=== PATIENT | male | born 1930 | race Caucasian/White ===

== ENCOUNTER 2019-09-03 18:38 | Inpatient (IN) | payer OTHER ==
[~2019-09-03] VITALS: Ht 162.5 cm; Wt 70.5 kg
[2019-09-03 13:00] VITALS: BP 184/100
[~2019-09-03 18:38] MED LIST: ASPIR-LOW81 MG PO; CO Q-1010 M1 PO; COUMADIN2.5 M1 PO; COZAAR100 MG PO; HYDROCODONE BIT1 T11 PO; LABETALOL100 MG PO; LASIX40 MG PO; LOPURIN300 MG PO; NORVASC5 MG PO; RITE AID BRAND650 MG PO; SIMVASTATIN40 MG PO; WARFARIN SOD5 MG PO
[2019-09-03 18:42] VITALS: BP 171/98
[2019-09-03 19:35] LABS: BASO % 0.2 % (0.0-1.0); EOS # 0.2 10*3/uL (0.0-0.4); EOS % 2.6 % (1.0-4.0); HEMATOCRIT 31.6 % (42.0-52.0); HEMOGLOBIN 10.2 g/dl (14.0-18.0); LYMPH # 1.1 10*3/uL (1.3-4.4); LYMPH % 12.3 % (27.0-41.0); MEAN CELL VOLUME 95.8 fl (80.0-94.0); MEAN CORPUSCULAR HGB 30.9 pg (27.0-31.0); MEAN CORPUSCULAR HGB CONC 32.3 g/dl (33.0-37.0); MEAN PLATELET VOLUME 10.2 fl (9.6-12.3); MONO # 1.4 10*3/uL (0.1-1.0); MONO % 15.2 % (3.0-9.0); NEUT # 6.1 10*3/uL (2.3-7.9); NEUT % 68.9 % (47.0-73.0); PLATELET COUNT AUTOMATED 194 10*3/uL (130-400); RED CELL DISTRI WIDTH 17.2 % (0-14.5); WHITE BLOOD COUNT 8.9 10*3/uL (4.8-10.8)
[2019-09-03 19:45] LABS: ACT PARTIAL THROMBO TIME 38.7 SECONDS (20.0-32.1); INTERNATIONAL NORM RATIO 2.6 (2.0-3.5)
[2019-09-03 19:56] LABS: CREATININE 2.95 mg/dL (0.70-1.30); POTASSIUM 3.7 mmol/L (3.5-5.1); TOTAL PROTEIN 6.4 gm/dL (6.4-8.2)
[2019-09-03 20:01] LABS: TROPONIN I 0.064 ng/ml (<0.045)
--- NOTE | 2019-09-03 22:37 | NUR ---
TROPONING OF 0.064.
--- NOTE | 2019-09-04 01:59 | NUR ---
DR MARYANA WHITE ANSWERING SERVICE HAS BEEN CONTACTED FOR PTS ELEVATED TROPONIN OF 0.075. CALL BACK NUMBER WAS PROVIDED
--- NOTE | 2019-09-04 02:29 | NUR ---
PT UP TO USE URINAL. STATES HE HAS HIP PAIN. DENIES CHEST PAIN
[2019-09-04 02:35] VITALS: BP 171/98
[2019-09-04 06:30] LABS: BASO % 0.3 % (0.0-1.0); EOS # 0.1 10*3/uL (0.0-0.4); EOS % 0.9 % (1.0-4.0); HEMATOCRIT 31.2 % (42.0-52.0); HEMOGLOBIN 10.1 g/dl (14.0-18.0); LYMPH # 1.2 10*3/uL (1.3-4.4); LYMPH % 12.4 % (27.0-41.0); MEAN CELL VOLUME 95.1 fl (80.0-94.0); MEAN CORPUSCULAR HGB 30.8 pg (27.0-31.0); MEAN CORPUSCULAR HGB CONC 32.4 g/dl (33.0-37.0); MEAN PLATELET VOLUME 10.7 fl (9.6-12.3); MONO # 1.4 10*3/uL (0.1-1.0); MONO % 15.1 % (3.0-9.0); NEUT # 6.6 10*3/uL (2.3-7.9); NEUT % 70.4 % (47.0-73.0); PLATELET COUNT AUTOMATED 194 10*3/uL (130-400); RED BLOOD COUNT 3.28 10*6/uL (4.50-5.90); RED CELL DISTRI WIDTH 17.2 % (0-14.5); WHITE BLOOD COUNT 9.4 10*3/uL (4.8-10.8)
[2019-09-04 06:39] LABS: ACT PARTIAL THROMBO TIME 40.2 SECONDS (20.0-32.1); INTERNATIONAL NORM RATIO 2.1 (2.0-3.5)
[2019-09-04 06:40] VITALS: BP 178/90
[2019-09-04 06:45] LABS: ALBUMIN 2.8 gm/dl (3.1-4.5); FREE T4 1.25 ng/dl (0.76-1.46); POTASSIUM 3.1 mmol/L (3.5-5.1)
[2019-09-04 06:54] LABS: CREATININE 2.8 mg/dL (0.70-1.30); PHOSPHOROUS 2.8 mg/dL (2.5-4.9); THYROID STIM HORMONE (HS) 0.415 uIU/ml (0.358-4.75); TOTAL PROTEIN 6.2 gm/dL (6.4-8.2)
[2019-09-04 07:21] LABS: VITAMIN D, 25-HYDROXY 62.5 ng/mL (30-100)
[2019-09-04 08:12] VITALS: BP 183/109
[2019-09-04 11:02] VITALS: BP 164/90
--- NOTE | 2019-09-04 12:33 | NUR ---
PT STATES ATIVAN HAS HELPED TAKE THE EDGE OFF SOME
--- NOTE | 2019-09-04 13:00 | NUR ---
Time: 1300 A 89 year old M admitted to under services of ROCKY VARNER DO, Pt. arrived via wheel chair from ER. Chief complaint: LOWER EXTREMITY EDEMA AND SHORTNESS OF BREATH. TARA NERI
--- NOTE | 2019-09-04 14:52 | NUR ---
PT LIVES AT [facility] AND PLANS TO RETURN WHEN MEDICALLY STABLE. WILL CONTINUE TO FOLLOW.
[2019-09-04] MEDS ORDERED: NEURONTIN300 MG PO (15:11)
[2019-09-04] MEDS ORDERED: LORADAMED10 MG PO (15:14)
[2019-09-04] MEDS ORDERED: MEGESTROL ACETA20 MG PO (15:15)
[2019-09-04] MEDS ORDERED: COMPLETE SENIO1 EACH PO (15:17)
[2019-09-04] MEDS ORDERED: NIFEDIPINE30 MG PO (15:19)
[2019-09-04] MEDS ORDERED: FLOMAX0.4 MG PO (15:22)
[2019-09-04] MEDS ORDERED: VITAMIN D10000 UNIT PO (15:25)
[2019-09-04] MEDS ORDERED: 'CLONIDINE0.1 MG PO (15:33)
[2019-09-04] MEDS ORDERED: ULTRAM50 MG PO (15:35)
[2019-09-04] MEDS ORDERED: TRAZODONE50 MG PO (15:37)
[2019-09-04 16:00] VITALS: BP 186/103
--- NOTE | 2019-09-04 16:28 | NUR ---
MEDICATED WITH CLONODINE PER PRN ORDER FOR BLOOD PRESSURE 186/103. WILL CONTINUE TO MONITOR.
--- NOTE | 2019-09-04 19:32 | NUR ---
PT STATES THAT HE IS FEELING ANDXIOUS ADN THAT HE HAS PAIN IN HIS HIPS AND LEGS RATING IT A 7/10. PRN TYLENOL IS GIVEN FOR THE PAIN. ATIVAN IS ALSO GIVEN AT THIS TIME. CALL LIGHT WITHIN REACH, WILL CONTINUE TO MONITOR
--- NOTE | 2019-09-04 19:35 | NUR ---
IN PT ROOM AT THIS TIME TO DO ASSESSMENT,PT STATES THAT HE IS FEELING ANXIOUS AND HAS PAIN IN HIS HIPS BUT OTHER THAN THAT HAS NO COMPLAINTS. CALL LIGHT IS WITHIN REACH. PT STATES THAT HE IS COMFORTABLE IN HIS CLOTHES AND DOES NOT WANT A GOWN ON.
[2019-09-04 20:00] VITALS: BP 181/100
--- NOTE | 2019-09-04 22:00 | NUR ---
IN PT ROOM A TO ASSESS IF THE PRN MEDICATIONS GIVEN WERE AFFECTIVE AND PT IS SLEEPING AT THIS TIME. WILL CONTINUE TO MONITOR, CALL LIGHT WITHIN REACH
[2019-09-05] VITALS: BP 172/70
--- NOTE | 2019-09-05 01:00 | NUR ---
24 HR chart check completed.
--- NOTE | 2019-09-05 04:00 | NUR ---
Patient sleeping. Respirations relaxed and easy. Siderails up . [place] on. LAURA GREGORIO
[2019-09-05 07:08] LABS: BASO % 0.2 % (0.0-1.0); EOS # 0.1 10*3/uL (0.0-0.4); HEMOGLOBIN 10.3 g/dl (14.0-18.0); LYMPH # 1.4 10*3/uL (1.3-4.4); LYMPH % 16.6 % (27.0-41.0); MEAN CELL VOLUME 93.6 fl (80.0-94.0); MEAN CORPUSCULAR HGB 30.1 pg (27.0-31.0); MEAN CORPUSCULAR HGB CONC 32.2 g/dl (33.0-37.0); MEAN PLATELET VOLUME 10.8 fl (9.6-12.3); MONO # 1.1 10*3/uL (0.1-1.0); NEUT # 5.9 10*3/uL (2.3-7.9); NEUT % 68.6 % (47.0-73.0); PLATELET COUNT AUTOMATED 221 10*3/uL (130-400); RED BLOOD COUNT 3.42 10*6/uL (4.50-5.90); RED CELL DISTRI WIDTH 17.3 % (0-14.5); WHITE BLOOD COUNT 8.6 10*3/uL (4.8-10.8)
[2019-09-05 07:25] LABS: INTERNATIONAL NORM RATIO 1.6 (2.0-3.5)
[2019-09-05 07:33] LABS: ALBUMIN 2.7 gm/dl (3.1-4.5); CREATININE 2.42 mg/dL (0.70-1.30); PHOSPHOROUS 2.7 mg/dL (2.5-4.9); POTASSIUM 3.2 mmol/L (3.5-5.1); TOTAL PROTEIN 6.2 gm/dL (6.4-8.2)
--- NOTE | 2019-09-05 07:45 | NUR ---
Nursing screen received and chart reviewed. Patient admitted for SOB, recently diagnosed with PNA at [place]. If patient has a decline in ADLs, functional transfers, and mobility, please send OT orders. Joyce Cartagena OTR/L
--- NOTE | 2019-09-05 07:57 | NUR ---
PHYSICAL THERAPY Screen recieved pt admitted from [facility] with CHF, per H&P pt c/o BLE swelling w difficulty ambulating. Pt would benefit from PT to increase mobility. Please consult as medically appropriate, thank you Luly Clark PT
[2019-09-05 08:00] VITALS: BP 166/74
--- NOTE | 2019-09-05 10:30 | NUR ---
HEPARIN DRIP INITIATED, BOLUS GIVEN AND STARTED AT 13.1 CC/HR.
[2019-09-05 12:00] VITALS: BP 154/83
--- NOTE | 2019-09-05 13:28 | NUR ---
PT IS FROM [facility] AND STATES HE WILL RETURN WHEN MEDICALLY STABLE AND READY FOR DISCHARGE.
[2019-09-05 16:00] VITALS: BP 132/80
--- NOTE | 2019-09-05 17:00 | NUR ---
HEPARIN GTT STOPPED AT THIS TIME DUE TO PTT RESULT. WILL DECREASE BY THREE UNITS AND RESUME AT 1800 PER POLICY.
[2019-09-05 20:00] VITALS: BP 137/79
--- NOTE | 2019-09-05 21:43 | NUR ---
PT RESTING ON BED WITH EASY RESPIRATIONS. HEPARIN DRIP AT 10 UNITS/7.3 ML/HR. PT TOLERATING WELL. 2+ EDEMA LOWER EXTREMITIES WITH LOWER RALES. PT USING BEDSIDE URINAL. NO PAIN REPORTED. NO DISTRESS NOTED. RN TO CONTINUE TO MONITOR FOR SIGNS OF BLEEDING.
[2019-09-06] VITALS: BP 152/79
[2019-09-06 07:42] LABS: INTERNATIONAL NORM RATIO 1.4 (2.0-3.5)
[2019-09-06 07:43] LABS: CREATININE 2.83 mg/dL (0.70-1.30)
--- NOTE | 2019-09-06 07:48 | NUR ---
Updated clinicals faxed to [facility] living. No PT or OT orders were placed. Patient stating he will return there upon discharge.
[2019-09-06 08:00] VITALS: BP 156/83
--- NOTE | 2019-09-06 08:15 | NUR ---
Contacted [facility] and spoke with Sanaz. Told her I faxed updated clinicals for review and patient should be discharged in 24 to 48 hours. She stated upon discharge his niece can transport later in the afternoon. Patient is ok to return to [facility] when medically stable for discharge.
[2019-09-06 12:00] VITALS: BP 137/77
[2019-09-06 16:00] VITALS: BP 132/69
[2019-09-06 20:00] VITALS: BP 146/82
--- NOTE | 2019-09-06 21:59 | NUR ---
PATIENT C/O SOB, WHEEZY. NO BREATHING TREATMENTS ORDER. NOTIFIED DR. HURTADO. SEE NEW ORDERS.
[2019-09-07] VITALS: BP 150/81
[2019-09-07 05:53] LABS: CREATININE 2.9 mg/dL (0.70-1.30); POTASSIUM 3.5 mmol/L (3.5-5.1)
[2019-09-07 06:23] LABS: ACT PARTIAL THROMBO TIME 46.3 SECONDS (20.0-32.1); INTERNATIONAL NORM RATIO 1.7 (2.0-3.5)
[2019-09-07 08:00] VITALS: BP 149/86
[2019-09-07 12:00] VITALS: BP 140/66; BP 154/87
--- NOTE | 2019-09-07 14:48 | NUR ---
Patient is from [facility]. He is ok to return when medically stable, his niece will transport him later in the afternoon.
[2019-09-07 16:00] VITALS: BP 158/68
[2019-09-07 20:00] VITALS: BP 160/85
--- NOTE | 2019-09-07 21:30 | NUR ---
PATIENT WHEEZY. C/O CHEST TIGHTNESS. NO BREATHING TREATMENTS ORDERED. NOTIFIED DR. LUGO. RAAD ORDERED, Q4 PRN. RESPIRATORY CALLED TO GIVE PATIENT A BREATHING TREATMENT.
--- NOTE | 2019-09-07 22:31 | NUR ---
PATIENT GIVEN TYLENOL FOR C/O GENERALIZED PAIN. WILL CHECK EFFECTIVENESS. PATIENT STATES BREATHING TREATMENT HELPED.
[2019-09-08] VITALS: BP 165/85
[2019-09-08 06:14] LABS: BASO % 0.6 % (0.0-1.0); EOS # 0.2 10*3/uL (0.0-0.4); EOS % 3.2 % (1.0-4.0); HEMATOCRIT 31.8 % (42.0-52.0); HEMOGLOBIN 10.2 g/dl (14.0-18.0); LYMPH # 1.3 10*3/uL (1.3-4.4); LYMPH % 19.2 % (27.0-41.0); MEAN CELL VOLUME 94.9 fl (80.0-94.0); MEAN CORPUSCULAR HGB 30.4 pg (27.0-31.0); MEAN CORPUSCULAR HGB CONC 32.1 g/dl (33.0-37.0); MEAN PLATELET VOLUME 10.2 fl (9.6-12.3); MONO # 0.8 10*3/uL (0.1-1.0); MONO % 12.9 % (3.0-9.0); NEUT # 4.1 10*3/uL (2.3-7.9); NEUT % 63.5 % (47.0-73.0); PLATELET COUNT AUTOMATED 168 10*3/uL (130-400); RED BLOOD COUNT 3.35 10*6/uL (4.50-5.90); RED CELL DISTRI WIDTH 16.9 % (0-14.5); WHITE BLOOD COUNT 6.5 10*3/uL (4.8-10.8)
[2019-09-08 06:30] LABS: CREATININE 2.9 mg/dL (0.70-1.30); POTASSIUM 3.5 mmol/L (3.5-5.1)
[2019-09-08 06:37] LABS: ACT PARTIAL THROMBO TIME 53.9 SECONDS (20.0-32.1); INTERNATIONAL NORM RATIO 2.4 (2.0-3.5)
--- NOTE | 2019-09-08 06:55 | NUR ---
PATIENTS INR 2.4. NOTIFIED DR. BRANAM. HOLMAN TO D/C HEPARIN DRIP.
[2019-09-08 08:00] VITALS: BP 162/97
[2019-09-08] MEDS ORDERED: COUMADIN5 M2 PO (10:11)
[2019-09-08] MEDS ORDERED: METOPROLOL SUCC50 M1 PO (10:11)
[2019-09-08] MEDS ORDERED: FUROSEMIDE40 MG PO (10:11)
--- NOTE | 2019-09-08 11:13 | NUR ---
Discharge instructions reviewed with patient/family. Patient receptive and verbalizes understanding. Follow-up care arranged. Written instructions given to patient/family AND DIANA DOOLEY
== END 2019-09-08 11:13 | disposition home or self-care (01) | DRG 291 ==
LOC: ED 18:38 → EDHOLD 22:31 → 4E 22:31
PROVIDERS: Family Medicine; Internal Medicine; Internal Medicine Nephrology; Physician Assistant; ADMIT Internal Medicine
DX: I13.0 Hypertensive heart and chronic kidney disease with heart failure and stage 1 through stage 4 chronic kidney disease, or unspecified chronic kidney disease (principal); I50.43 Acute on chronic combined systolic (congestive) and diastolic (congestive) heart failure; E44.0 Moderate protein-calorie malnutrition; I45.2 Bifascicular block; N18.4 Chronic kidney disease, stage 4 (severe); D53.9 Nutritional anemia, unspecified; D72.810 Lymphocytopenia; E87.8 Other disorders of electrolyte and fluid balance, not elsewhere classified; R73.9 Hyperglycemia, unspecified; E78.5 Hyperlipidemia, unspecified; M89.9 Disorder of bone, unspecified; Z51.5 Encounter for palliative care; Z66 Do not resuscitate; I71.4 Abdominal aortic aneurysm, without rupture; Z95.2 Presence of prosthetic heart valve; Z68.27 Body mass index [BMI] 27.0-27.9, adult; Z79.899 Other long term (current) drug therapy; Z79.82 Long term (current) use of aspirin; Z79.01 Long term (current) use of anticoagulants; Z98.49 Cataract extraction status, unspecified eye

== ENCOUNTER 2019-09-13 12:07 | Inpatient (IN) | payer OTHER ==
[~2019-09-13] VITALS: Ht 162.6 cm; Wt 64.9 kg
[~2019-09-13 12:07] MED LIST changes: +'CLONIDINE0.1 MG PO; +COMPLETE SENIO1 EACH PO; +COUMADIN5 M2 PO; +FLOMAX0.4 MG PO; +FUROSEMIDE40 MG PO; +LORADAMED10 MG PO; +MEGESTROL ACETA20 MG PO; +METOPROLOL SUCC50 M1 PO; +NEURONTIN300 MG PO; +NIFEDIPINE30 MG PO; +TRAZODONE50 MG PO; +ULTRAM50 MG PO; +VITAMIN D10000 UNIT PO
[2019-09-13 12:35] VITALS: BP 143/80
[2019-09-13 12:48] LABS: BASO % 0.4 % (0.0-1.0); EOS # 0.1 10*3/uL (0.0-0.4); EOS % 1.7 % (1.0-4.0); HEMATOCRIT 32.9 % (42.0-52.0); HEMOGLOBIN 10.5 g/dl (14.0-18.0); MEAN CELL VOLUME 95.1 fl (80.0-94.0); MEAN CORPUSCULAR HGB 30.3 pg (27.0-31.0); MEAN CORPUSCULAR HGB CONC 31.9 g/dl (33.0-37.0); MEAN PLATELET VOLUME 10.6 fl (9.6-12.3); MONO % 14.3 % (3.0-9.0); NEUT # 4.8 10*3/uL (2.3-7.9); NEUT % 68.5 % (47.0-73.0); PLATELET COUNT AUTOMATED 259 10*3/uL (130-400); RED BLOOD COUNT 3.46 10*6/uL (4.50-5.90); RED CELL DISTRI WIDTH 17.2 % (0-14.5)
[2019-09-13 12:59] LABS: ACT PARTIAL THROMBO TIME 41.2 SECONDS (20.0-32.1); INTERNATIONAL NORM RATIO 4.3 (2.0-3.5)
[2019-09-13 13:04] LABS: ALBUMIN 3.2 gm/dl (3.1-4.5); CREATININE 3.12 mg/dL (0.70-1.30); POTASSIUM 3.3 mmol/L (3.5-5.1)
[2019-09-13 13:06] LABS: TROPONIN I 0.317 ng/ml (<0.045)
[2019-09-13 13:49] VITALS: BP 153/81
[2019-09-13 15:50] LABS: CLARITY CLEAR (CLEAR); COLOR YELLOW (YELLOW); UROBILINOGEN 0.2 E.U./dl (0.2-1.0)
[2019-09-13 15:51] LABS: BILIRUBIN NEGATIVE (NEGATIVE); BLOOD NEGATIVE (NEGATIVE); EPITHELIAL CELLS 0-2; GLUCOSE NEGATIVE (NEGATIVE); KETONE NEGATIVE (NEGATIVE); LEUKO ESTERASE NEGATIVE (NEGATIVE); NITRITE NEGATIVE (NEGATIVE)
[2019-09-13 16:22] VITALS: BP 156/89
[2019-09-13 17:14] VITALS: BP 165/80
[2019-09-13] MEDS ORDERED: XOPENEX1.25 MG/3 NEB (17:57)
[2019-09-13] MEDS ORDERED: TESSALON PERLE100 MG PO (17:59)
[2019-09-13] MEDS ORDERED: ANTACID CHEWAB1 EACH PO (18:00)
[2019-09-13 20:00] VITALS: BP 158/75
[2019-09-14] VITALS: BP 148/78
[2019-09-14 06:34] LABS: BASO # 0.1 10*3/uL (0.0-0.1); BASO % 0.7 % (0.0-1.0); EOS # 0.2 10*3/uL (0.0-0.4); EOS % 3.4 % (1.0-4.0); HEMATOCRIT 29.8 % (42.0-52.0); HEMOGLOBIN 9.4 g/dl (14.0-18.0); LYMPH # 1.3 10*3/uL (1.3-4.4); LYMPH % 18.3 % (27.0-41.0); MEAN CELL VOLUME 96.1 fl (80.0-94.0); MEAN CORPUSCULAR HGB 30.3 pg (27.0-31.0); MEAN CORPUSCULAR HGB CONC 31.5 g/dl (33.0-37.0); MEAN PLATELET VOLUME 10.8 fl (9.6-12.3); MONO # 0.9 10*3/uL (0.1-1.0); MONO % 12.6 % (3.0-9.0); NEUT # 4.6 10*3/uL (2.3-7.9); PLATELET COUNT AUTOMATED 252 10*3/uL (130-400); RED CELL DISTRI WIDTH 17.2 % (0-14.5); WHITE BLOOD COUNT 7.2 10*3/uL (4.8-10.8)
[2019-09-14 07:18] LABS: INTERNATIONAL NORM RATIO 3.6 (2.0-3.5)
[2019-09-14 07:24] LABS: CREATININE 2.88 mg/dL (0.70-1.30); POTASSIUM 3.2 mmol/L (3.5-5.1)
[2019-09-14 07:35] LABS: FREE T4 1.05 ng/dl (0.76-1.46); PHOSPHOROUS 3.7 mg/dL (2.5-4.9); THYROID STIM HORMONE (HS) 0.326 uIU/ml (0.358-4.75)
[2019-09-14 08:00] VITALS: BP 168/82
[2019-09-14 08:17] LABS: VITAMIN D, 25-HYDROXY 72.8 ng/mL (30-100)
[2019-09-14 12:00] VITALS: BP 163/80
[2019-09-14 16:00] VITALS: BP 153/87
[2019-09-14 20:00] VITALS: BP 155/83
[2019-09-15] VITALS: BP 154/70
[2019-09-15 06:30] LABS: BASO % 0.5 % (0.0-1.0); EOS # 0.1 10*3/uL (0.0-0.4); EOS % 1.3 % (1.0-4.0); HEMATOCRIT 30.9 % (42.0-52.0); HEMOGLOBIN 9.8 g/dl (14.0-18.0); LYMPH # 1.1 10*3/uL (1.3-4.4); MEAN CELL VOLUME 96.6 fl (80.0-94.0); MEAN CORPUSCULAR HGB 30.6 pg (27.0-31.0); MEAN CORPUSCULAR HGB CONC 31.7 g/dl (33.0-37.0); MONO # 1.1 10*3/uL (0.1-1.0); MONO % 12.5 % (3.0-9.0); NEUT # 6.4 10*3/uL (2.3-7.9); PLATELET COUNT AUTOMATED 262 10*3/uL (130-400); RED CELL DISTRI WIDTH 17.5 % (0-14.5); WHITE BLOOD COUNT 8.8 10*3/uL (4.8-10.8)
[2019-09-15 07:02] LABS: ALBUMIN 2.9 gm/dl (3.1-4.5); CREATININE 2.62 mg/dL (0.70-1.30); PHOSPHOROUS 3.6 mg/dL (2.5-4.9); POTASSIUM 3.5 mmol/L (3.5-5.1)
[2019-09-15 07:22] LABS: INTERNATIONAL NORM RATIO 2.8 (2.0-3.5)
[2019-09-15 08:00] VITALS: BP 154/83
[2019-09-15 12:00] VITALS: BP 153/86
[2019-09-15 16:00] VITALS: BP 158/75
[2019-09-15 20:00] VITALS: BP 155/95
[2019-09-16] VITALS: BP 151/83
[2019-09-16 05:58] LABS: BASO # 0.1 10*3/uL (0.0-0.1); BASO % 0.6 % (0.0-1.0); EOS # 0.2 10*3/uL (0.0-0.4); EOS % 2.1 % (1.0-4.0); HEMATOCRIT 30.5 % (42.0-52.0); HEMOGLOBIN 9.7 g/dl (14.0-18.0); LYMPH # 1.2 10*3/uL (1.3-4.4); LYMPH % 15.3 % (27.0-41.0); MEAN CELL VOLUME 97.8 fl (80.0-94.0); MEAN CORPUSCULAR HGB 31.1 pg (27.0-31.0); MEAN CORPUSCULAR HGB CONC 31.8 g/dl (33.0-37.0); MEAN PLATELET VOLUME 11.3 fl (9.6-12.3); MONO # 0.9 10*3/uL (0.1-1.0); MONO % 11.6 % (3.0-9.0); NEUT # 5.5 10*3/uL (2.3-7.9); NEUT % 69.1 % (47.0-73.0); PLATELET COUNT AUTOMATED 246 10*3/uL (130-400); RED BLOOD COUNT 3.12 10*6/uL (4.50-5.90); RED CELL DISTRI WIDTH 17.3 % (0-14.5)
[2019-09-16 06:22] LABS: ALBUMIN 2.7 gm/dl (3.1-4.5); CREATININE 2.72 mg/dL (0.70-1.30); PHOSPHOROUS 4.1 mg/dL (2.5-4.9); POTASSIUM 3.6 mmol/L (3.5-5.1)
[2019-09-16 06:26] LABS: INTERNATIONAL NORM RATIO 2.3 (2.0-3.5)
[2019-09-16 08:00] VITALS: BP 164/84
[2019-09-16 12:00] VITALS: BP 138/67
[2019-09-16 16:00] VITALS: BP 146/77
[2019-09-16 20:00] VITALS: BP 145/78
[2019-09-17] VITALS: BP 141/78
[2019-09-17 06:11] LABS: ALBUMIN 2.8 gm/dl (3.1-4.5); BASO % 0.3 % (0.0-1.0); CREATININE 2.85 mg/dL (0.70-1.30); EOS # 0.1 10*3/uL (0.0-0.4); EOS % 1.8 % (1.0-4.0); HEMATOCRIT 31.7 % (42.0-52.0); LYMPH # 1.1 10*3/uL (1.3-4.4); LYMPH % 13.7 % (27.0-41.0); MEAN CELL VOLUME 96.4 fl (80.0-94.0); MEAN CORPUSCULAR HGB 30.4 pg (27.0-31.0); MEAN CORPUSCULAR HGB CONC 31.5 g/dl (33.0-37.0); MEAN PLATELET VOLUME 11.2 fl (9.6-12.3); NEUT # 5.7 10*3/uL (2.3-7.9); NEUT % 71.6 % (47.0-73.0); PHOSPHOROUS 4.3 mg/dL (2.5-4.9); PLATELET COUNT AUTOMATED 251 10*3/uL (130-400); POTASSIUM 4.1 mmol/L (3.5-5.1); RED BLOOD COUNT 3.29 10*6/uL (4.50-5.90); RED CELL DISTRI WIDTH 17.2 % (0-14.5)
[2019-09-17 06:21] LABS: INTERNATIONAL NORM RATIO 2.6 (2.0-3.5)
[2019-09-17 08:00] VITALS: BP 152/84
[2019-09-17 12:00] VITALS: BP 154/79
[2019-09-17 16:00] VITALS: BP 166/86
[2019-09-17 20:00] VITALS: BP 131/67
[2019-09-18] VITALS: BP 140/70
[2019-09-18 07:24] LABS: BASO % 0.3 % (0.0-1.0); EOS # 0.2 10*3/uL (0.0-0.4); EOS % 2.5 % (1.0-4.0); HEMATOCRIT 32.7 % (42.0-52.0); HEMOGLOBIN 10.3 g/dl (14.0-18.0); LYMPH % 13.2 % (27.0-41.0); MEAN CELL VOLUME 97.3 fl (80.0-94.0); MEAN CORPUSCULAR HGB 30.7 pg (27.0-31.0); MEAN CORPUSCULAR HGB CONC 31.5 g/dl (33.0-37.0); MEAN PLATELET VOLUME 11.4 fl (9.6-12.3); MONO # 0.8 10*3/uL (0.1-1.0); MONO % 10.8 % (3.0-9.0); NEUT # 5.5 10*3/uL (2.3-7.9); NEUT % 72.7 % (47.0-73.0); PLATELET COUNT AUTOMATED 257 10*3/uL (130-400); RED BLOOD COUNT 3.36 10*6/uL (4.50-5.90); RED CELL DISTRI WIDTH 17.2 % (0-14.5); WHITE BLOOD COUNT 7.6 10*3/uL (4.8-10.8)
[2019-09-18 07:40] LABS: CREATININE 2.85 mg/dL (0.70-1.30); POTASSIUM 3.8 mmol/L (3.5-5.1)
[2019-09-18 08:00] VITALS: BP 142/92
[2019-09-18 12:00] VITALS: BP 145/74
[2019-09-18 16:00] VITALS: BP 155/76
[2019-09-18 20:00] VITALS: BP 152/79
[2019-09-19] VITALS: BP 154/80
[2019-09-19 06:20] LABS: POTASSIUM 3.8 mmol/L (3.5-5.1)
[2019-09-19 06:21] LABS: CREATININE 2.8 mg/dL (0.70-1.30); PHOSPHOROUS 4.7 mg/dL (2.5-4.9)
[2019-09-19 06:47] LABS: INTERNATIONAL NORM RATIO 3.4 (2.0-3.5)
[2019-09-19 08:00] VITALS: BP 112/64; BP 152/76
[2019-09-19 10:29] LABS: BODY FLUID WBC 166 /uL
[2019-09-19 11:18] LABS: BF LYMPHOCYTES 12 %; BF MACROPHAGES 70 %; BF MESOTHELIALS 4 %; BF NEUTROPHILS 14 %
[2019-09-19 12:00] VITALS: BP 155/89
[2019-09-19 14:00] VITALS: BP 124/80
[2019-09-19 16:00] VITALS: BP 148/69
[2019-09-19 20:00] VITALS: BP 141/76
[2019-09-20] VITALS: BP 140/75
[2019-09-20 07:02] LABS: ALBUMIN 2.8 gm/dl (3.1-4.5); CREATININE 2.75 mg/dL (0.70-1.30); PHOSPHOROUS 3.9 mg/dL (2.5-4.9); POTASSIUM 3.5 mmol/L (3.5-5.1)
[2019-09-20 07:10] LABS: INTERNATIONAL NORM RATIO 3.2 (2.0-3.5)
[2019-09-20 08:00] VITALS: BP 150/80
[2019-09-20 12:00] VITALS: BP 160/84
[2019-09-20] MEDS ORDERED: APRESOLINE10 MG PO (15:03)
[2019-09-20] MEDS ORDERED: BUMETANIDE1 MG PO (15:03)
[2019-09-20] MEDS ORDERED: ALDACTONE25 MG PO (15:03)
[2019-09-20] MEDS ORDERED: COUMADIN5 M2 PO (15:03)
[2019-09-20 16:00] VITALS: BP 160/82
== END 2019-09-20 16:59 | disposition home or self-care (01) | DRG 280 ==
LOC: ED 12:07 → EDHOLD 14:07 → 4E 14:07
PROVIDERS: Emergency Medicine; Internal Medicine; Internal Medicine Critical Care Medicine; Internal Medicine Nephrology; Nurse Practitioner Family; Registered Nurse; ADMIT Internal Medicine
PROC: 0W9930Z Drainage of Right Pleural Cavity with Drainage Device, Percutaneous Approach (ICD-10-PCS; principal; 2019-09-19)
DX: I13.2 Hypertensive heart and chronic kidney disease with heart failure and with stage 5 chronic kidney disease, or end stage renal disease (principal); I50.43 Acute on chronic combined systolic (congestive) and diastolic (congestive) heart failure; I21.A1 Myocardial infarction type 2; J96.01 Acute respiratory failure with hypoxia; J91.8 Pleural effusion in other conditions classified elsewhere; I45.2 Bifascicular block; E44.0 Moderate protein-calorie malnutrition; N17.9 Acute kidney failure, unspecified; N18.5 Chronic kidney disease, stage 5; I47.2 Ventricular tachycardia; I38 Endocarditis, valve unspecified; D68.9 Coagulation defect, unspecified; E87.6 Hypokalemia; R73.9 Hyperglycemia, unspecified; E87.8 Other disorders of electrolyte and fluid balance, not elsewhere classified; E83.41 Hypermagnesemia; E78.5 Hyperlipidemia, unspecified; I71.4 Abdominal aortic aneurysm, without rupture; M10.9 Gout, unspecified; J30.2 Other seasonal allergic rhinitis; N40.0 Benign prostatic hyperplasia without lower urinary tract symptoms; D63.8 Anemia in other chronic diseases classified elsewhere; Z51.5 Encounter for palliative care; Z66 Do not resuscitate; I25.10 Atherosclerotic heart disease of native coronary artery without angina pectoris; Z95.2 Presence of prosthetic heart valve; Z68.27 Body mass index [BMI] 27.0-27.9, adult; Z79.01 Long term (current) use of anticoagulants; Z79.899 Other long term (current) drug therapy; Z98.49 Cataract extraction status, unspecified eye; Z82.3 Family history of stroke; Z83.3 Family history of diabetes mellitus

== ENCOUNTER 2019-09-28 17:52 | Inpatient (IN) | payer OTHER ==
[~2019-09-28] VITALS: Ht 162.5 cm; Wt 67.2 kg
[~2019-09-28 17:52] MED LIST changes: +ALDACTONE25 MG PO; +ANTACID CHEWAB1 EACH PO; +APRESOLINE10 MG PO; +BUMETANIDE1 MG PO; +TESSALON PERLE100 MG PO; +XOPENEX1.25 MG/3 NEB
[2019-09-28 17:57] VITALS: BP 163/91
[2019-09-28 18:16] LABS: BASO % 0.3 % (0.0-1.0); EOS # 0.3 10*3/uL (0.0-0.4); EOS % 4.1 % (1.0-4.0); HEMOGLOBIN 10.5 g/dl (14.0-18.0); LYMPH # 1.1 10*3/uL (1.3-4.4); LYMPH % 15.7 % (27.0-41.0); MEAN CELL VOLUME 95.9 fl (80.0-94.0); MEAN CORPUSCULAR HGB 30.5 pg (27.0-31.0); MEAN CORPUSCULAR HGB CONC 31.8 g/dl (33.0-37.0); MEAN PLATELET VOLUME 10.2 fl (9.6-12.3); MONO % 14.2 % (3.0-9.0); NEUT # 4.4 10*3/uL (2.3-7.9); NEUT % 65.1 % (47.0-73.0); PLATELET COUNT AUTOMATED 228 10*3/uL (130-400); RED BLOOD COUNT 3.44 10*6/uL (4.50-5.90); RED CELL DISTRI WIDTH 16.2 % (0-14.5); WHITE BLOOD COUNT 6.8 10*3/uL (4.8-10.8)
[2019-09-28 18:32] LABS: ACT PARTIAL THROMBO TIME 45.8 SECONDS (20.0-32.1)
--- NOTE | 2019-09-28 18:32 | NUR ---
PT AWAKE RESTING IN BED. FAMILY AT BEDSIDE.
[2019-09-28 18:36] LABS: INTERNATIONAL NORM RATIO 4.7 (2.0-3.5)
[2019-09-28 18:40] LABS: ALBUMIN 2.9 gm/dl (3.1-4.5); POTASSIUM 3.9 mmol/L (3.5-5.1); TOTAL PROTEIN 6.5 gm/dL (6.4-8.2)
[2019-09-28 18:44] LABS: TROPONIN I 0.066 ng/ml (<0.045)
[2019-09-28 18:46] VITALS: BP 164/86
--- NOTE | 2019-09-28 18:59 | NUR ---
NURSE TO NURSE REPORT GIVEN TO THIS RN.PT RESTING IN BED.FAMILY AT BEDSIDE.
[2019-09-28 19:34] VITALS: BP 158/92
--- NOTE | 2019-09-28 19:59 | NUR ---
PT ASSISTED ONTO BEDSIDE TOILET.
--- NOTE | 2019-09-28 20:05 | NUR ---
PT RESTING IN BED.DAUGHTER AT BEDSIDE.UPDATED ON CURRENT PLAN OF CARE.
--- NOTE | 2019-09-28 22:35 | NUR ---
PT AWAITING BED ASSIGNMENT.
--- NOTE | 2019-09-28 22:36 | NUR ---
PT DENIES ANY OPEN WOUNDS SORES OR CUTS AT THIS TIME.
[2019-09-28 23:25] VITALS: BP 126/66
[2019-09-28] MEDS ORDERED: APRESOLINE10 MG PO (23:36)
--- NOTE | 2019-09-28 23:45 | NUR ---
DR. KELLY NOTIFIED OF WOUND ON PT LEFT FOREARM. ORDERS RECEIVED.
[2019-09-28] MEDS ORDERED: MAPAP325 MG PO (23:46)
[2019-09-28] MEDS ORDERED: COUMADIN2.5 M1 PO (23:51)
[2019-09-28] MEDS ORDERED: COUMADIN5 M2 PO (23:52)
--- NOTE | 2019-09-28 23:53 | NUR ---
MED REC COMPLETED WITH LIST FROM [facility]. DR KELLY MADE AWARE THAT THE PATIENT'S 5MG COUMADIN WAS PUT ON HOLD ON 09/28/2019 FOR 72 HOURS. MED REC STATES TO RESTART COUMADIN 2.5 MG AFTER THE 72 HOURS EVERY OTHER DAY. ALSO STATES TO ALTERNATE WITH COUMADIN 5 MG EVERY OTHER DAY
--- NOTE | 2019-09-29 02:13 | NUR ---
CONSULT CALLED TO DR. PITT'S ANSWERING SERVICE
[2019-09-29 06:38] LABS: BASO % 0.5 % (0.0-1.0); EOS # 0.2 10*3/uL (0.0-0.4); EOS % 2.8 % (1.0-4.0); HEMATOCRIT 31.4 % (42.0-52.0); HEMOGLOBIN 9.9 g/dl (14.0-18.0); LYMPH # 1.2 10*3/uL (1.3-4.4); LYMPH % 18.2 % (27.0-41.0); MEAN CELL VOLUME 96.3 fl (80.0-94.0); MEAN CORPUSCULAR HGB 30.4 pg (27.0-31.0); MEAN CORPUSCULAR HGB CONC 31.5 g/dl (33.0-37.0); MEAN PLATELET VOLUME 10.6 fl (9.6-12.3); MONO # 0.9 10*3/uL (0.1-1.0); MONO % 14.3 % (3.0-9.0); NEUT # 4.1 10*3/uL (2.3-7.9); NEUT % 63.6 % (47.0-73.0); PLATELET COUNT AUTOMATED 225 10*3/uL (130-400); RED BLOOD COUNT 3.26 10*6/uL (4.50-5.90); RED CELL DISTRI WIDTH 16.4 % (0-14.5); WHITE BLOOD COUNT 6.4 10*3/uL (4.8-10.8)
[2019-09-29 06:48] LABS: ACT PARTIAL THROMBO TIME 47.3 SECONDS (20.0-32.1)
[2019-09-29 06:53] LABS: ALBUMIN 2.7 gm/dl (3.1-4.5); CREATININE 2.9 mg/dL (0.70-1.30); PHOSPHOROUS 3.7 mg/dL (2.5-4.9); POTASSIUM 3.4 mmol/L (3.5-5.1)
[2019-09-29 06:54] LABS: FREE T4 1.03 ng/dl (0.76-1.46)
[2019-09-29 06:59] LABS: THYROID STIM HORMONE (HS) 0.998 uIU/ml (0.358-4.75)
[2019-09-29 07:51] LABS: VITAMIN D, 25-HYDROXY 59.4 ng/mL (30-100)
[2019-09-29 08:00] VITALS: BP 156/76
[2019-09-29 12:00] VITALS: BP 147/82
--- NOTE | 2019-09-29 12:38 | NUR ---
attempted to enter forms for case management and was unable to do so as it said that form was in use.
--- NOTE | 2019-09-29 15:20 | NUR ---
PT REQUESTED AND GIVEN TYLENOL FOR C/O HEADACHE WILL MONITOR
[2019-09-29 16:00] VITALS: BP 139/76
--- NOTE | 2019-09-29 16:07 | NUR ---
PT STATES THAT TYLENOL HELPED WILL MONITOR
--- NOTE | 2019-09-29 19:19 | NUR ---
REPORT RECEIVED. PT SLEEPING AT THIS TIME. NO S/S OF DISTRESS, CALL LIGHT IN REACH
[2019-09-29 20:00] VITALS: BP 159/84
--- NOTE | 2019-09-29 21:25 | NUR ---
PT MEDICATED WITH RESTORIL ORDERED FOR COMPLAINTS OF INSOMNIA. SEE MAR
--- NOTE | 2019-09-29 22:40 | NUR ---
RESTORIL APPEARS EFFECTIVE. PT SLEEPING AT THIS TIME.
[2019-09-30] VITALS: BP 179/76
--- NOTE | 2019-09-30 | NUR ---
PT SLEEPING AT THIS TIME.
--- NOTE | 2019-09-30 00:58 | NUR ---
DR. GARZA NOTIFIED OF BP OF 179/76. ORDERED TO CHECK BP AGAIN IN AN HOUR. WILL MONITOR PT. PT SLEEPING AT THIS TIME.
[2019-09-30 01:49] VITALS: BP 148/84
--- NOTE | 2019-09-30 02:00 | NUR ---
PT BP 148/84. PT SLEEPING AT THIS TIME. O2 INTACT. CALL LIGHT IN REACH
--- NOTE | 2019-09-30 04:00 | NUR ---
PT SLEEPING. NO S/S OF DISTRESS NOTED. CALL LIGHT IN REACH
[2019-09-30 05:28] VITALS: BP 170/90
[2019-09-30 05:55] LABS: CREATININE 2.64 mg/dL (0.70-1.30); POTASSIUM 3.8 mmol/L (3.5-5.1)
[2019-09-30 06:00] LABS: BASO % 0.3 % (0.0-1.0); EOS # 0.2 10*3/uL (0.0-0.4); EOS % 3.3 % (1.0-4.0); HEMATOCRIT 32.6 % (42.0-52.0); HEMOGLOBIN 10.3 g/dl (14.0-18.0); LYMPH # 1.2 10*3/uL (1.3-4.4); LYMPH % 18.5 % (27.0-41.0); MEAN CELL VOLUME 95.6 fl (80.0-94.0); MEAN CORPUSCULAR HGB 30.2 pg (27.0-31.0); MEAN CORPUSCULAR HGB CONC 31.6 g/dl (33.0-37.0); MEAN PLATELET VOLUME 10.8 fl (9.6-12.3); MONO # 0.9 10*3/uL (0.1-1.0); MONO % 13.9 % (3.0-9.0); NEUT % 62.9 % (47.0-73.0); PLATELET COUNT AUTOMATED 239 10*3/uL (130-400); RED BLOOD COUNT 3.41 10*6/uL (4.50-5.90); RED CELL DISTRI WIDTH 16.4 % (0-14.5); WHITE BLOOD COUNT 6.3 10*3/uL (4.8-10.8)
[2019-09-30 06:04] LABS: INTERNATIONAL NORM RATIO 2.3 (2.0-3.5)
--- NOTE | 2019-09-30 07:43 | NUR ---
PT RESTING IN BED. NO DISTRESS NOTED. WILL MONITOR
[2019-09-30 08:00] VITALS: BP 174/88
[2019-09-30 12:00] VITALS: BP 118/82
--- NOTE | 2019-09-30 19:58 | NUR ---
PATIENT RESTING IN BED WITH VISITOR AT BEDSIDE. NO NEEDS MADE. BED IN LOWEST POSITION, CALL LIGHT IN REACH
[2019-09-30 20:00] VITALS: BP 160/86
--- NOTE | 2019-09-30 21:09 | NUR ---
medicated with prn restoril for c/o sleeplessness. will monitor
[2019-10-01] VITALS (8 sets, daily range): BP systolic 130–174; BP diastolic 60–99
--- NOTE | 2019-10-01 00:27 | NUR ---
NOTIFIED DR GARZA THAT PATIENT'S BLOOD PRESSURE WAS 170/92 MANUALLY WITH A HEART RATE OF 94 PER IRRIGATION PUMP INSTALLER. NO NEW ORDERS RECIEVED AT THIS TIME.
--- NOTE | 2019-10-01 03:12 | NUR ---
NOTIFIED DR GARZA THAT PATIENT'S BLOOD PRESSURE IS 164/98 AND HEART RATE IS 92. NO NEW ORDERS RECIEVED. WILL CONTINUE TO MONITOR.
[2019-10-01 06:54] LABS: BASO % 0.3 % (0.0-1.0); EOS # 0.3 10*3/uL (0.0-0.4); EOS % 4.7 % (1.0-4.0); HEMATOCRIT 31.9 % (42.0-52.0); HEMOGLOBIN 10.1 g/dl (14.0-18.0); LYMPH # 1.1 10*3/uL (1.3-4.4); LYMPH % 15.7 % (27.0-41.0); MEAN CELL VOLUME 94.7 fl (80.0-94.0); MEAN CORPUSCULAR HGB CONC 31.7 g/dl (33.0-37.0); MONO # 1.1 10*3/uL (0.1-1.0); NEUT # 4.3 10*3/uL (2.3-7.9); NEUT % 62.9 % (47.0-73.0); PLATELET COUNT AUTOMATED 241 10*3/uL (130-400); RED BLOOD COUNT 3.37 10*6/uL (4.50-5.90); RED CELL DISTRI WIDTH 16.4 % (0-14.5); WHITE BLOOD COUNT 6.8 10*3/uL (4.8-10.8)
[2019-10-01 07:02] LABS: INTERNATIONAL NORM RATIO 1.8 (2.0-3.5)
[2019-10-01 07:04] LABS: CREATININE 2.39 mg/dL (0.70-1.30); POTASSIUM 3.4 mmol/L (3.5-5.1)
--- NOTE | 2019-10-01 08:20 | NUR ---
PT RESTING IN CHAIR. NO DISTRESS NOTED. WILL MONITOR
--- NOTE | 2019-10-01 09:37 | NUR ---
STEVIE GREENWOOD [id number] Please refer to the physician's history and physical for past medical history, comorbid conditions, and allergies. Diagnosis: ACUTE DYSPNEA, CHF Abelardo Score: 18,AT RISK WOUND DESCRIPTIONS: Wound Number: 1 Location of the wound: LEFT ARM Type of wound: SKIN TEAR Thickness: Partial Size: 0.9cm X 0.7cm X 0.1cm Tunneling: NONE Undermining: NONE Sinus Tract: NONE Presence of Exudate: Serous sanguineous Amount: Light Color: Red Odor: None Periwound Skin Appearance: Erythema Wound edges: APPROXIMATED Pain (associated with wound): DENIED AT TIME OF ASSESSMENT How does patient state this happened? PATIENT UNSURE HOW THIS HAPPENED. If wound is on legs/feet or hands, capillary refill time, pulses, color temp, sensation: CAP REFILL < 3 SECONDS. PATIENT HAS AREA TO RIGHT BACK WHERE FLUID WAS DRAINED FROM HIS LUNGS PER PATIENT. COVERED WITH BANDAID AT TIME OF ASSESSMENT. Surface the patient is resting on: Position Pro SKIN PREVENTION RECOMMENDATION: 1. Pressure redistribution support surface as appropriate 2. Elevate heels 3. Remove boots/TEDS every shift and reapply 4. Head of bed 30 degrees as tolerated 5. Assess nutrition and hydration 6. Manage moisture 7. Avoid the use of containment devices while in bed 8. Use absorptive products on surfaces limit layers of linens on bed 9. Turn and reposition every 1-2 hours in bed and every 1 hour in chair as tolerated 10. Weight shifts every 15 minutes while up in chair 11. Offloading with pillows or device to keep heels elevated off bed 12. Monitor skin at least every shift 13. Inspect under medical devices twice a day WOUND TREATMENT RECOMMENDATIONS: CONTINUE CURRENT ORDERS.
--- NOTE | 2019-10-01 10:19 | NUR ---
PT REQUESTED AND GIVEN TYLENOL FOR C/O HEADACHE WILL MONITOR
--- NOTE | 2019-10-01 11:11 | NUR ---
Updated clinicals faxed to [facility] for review. Attempted to contact Sanaz at facility, unable to contact, unable to leave message. Will attempt again later.
--- NOTE | 2019-10-01 11:58 | NUR ---
Patient updated clinicals faxed to [facility] for review. Patient is a resident of the assisted living. Patient was just discharged to return there last week with prescription for PT/OT home health. Attempted to reach Sanaz, unable to contact. will try again later.
--- NOTE | 2019-10-01 12:14 | NUR ---
Nutritional Support Services Note: Appetite is good for meals. Pt is eating 100% of all meals. Cardiac diet as ordered. Ht.5'4 Wt.146# IBW 130#. He has a skin tear noted. Staff to continue to encourage good intake of meals. Will follow if needed. No other Nutrition intervention needed at this time. Abi Couch Rdn Ld
--- NOTE | 2019-10-01 19:55 | NUR ---
PATIENT HAD LASIX AT 1755. BUMEX WAS ORDERED TO BE GIVEN NOW. NOTIFIED DR ELAM. HE SAID TO NOT GIVE THE BUMEX TONIGHT AND START IT TOMORROW. BUMEX NOT GIVEN.
[2019-10-02] VITALS: BP 131/86
--- NOTE | 2019-10-02 04:00 | NUR ---
Upon discharge recommend patient to follow up for wound care in outpatient setting continue current wound care orders at discharging facility.
[2019-10-02 06:36] LABS: INTERNATIONAL NORM RATIO 1.7 (2.0-3.5)
[2019-10-02 06:58] LABS: CREATININE 2.54 mg/dL (0.70-1.30)
[2019-10-02 08:00] VITALS: BP 148/83
[2019-10-02] MEDS ORDERED: APRESOLINE25 MG PO (11:14)
[2019-10-02] MEDS ORDERED: BUMETANIDE1 MG PO (11:14)
[2019-10-02] MEDS ORDERED: ALDACTONE25 MG PO (11:14)
[2019-10-02] MEDS ORDERED: IMDUR SA30 MG PO (11:14)
[2019-10-02] MEDS ORDERED: METOPROLOL SUC100 M1 PO (11:14)
[2019-10-02 12:00] VITALS: BP 153/97
--- NOTE | 2019-10-02 12:16 | NUR ---
Patient is being discharged to return to [facility], daughter Maki has arranged for a family member to pick him up at 2PM to transport. WC/Nursing and [facility] all notified. Faxed Discharge summary/orders.
--- NOTE | 2019-10-02 12:51 | NUR ---
PT REFUSED DC WOUND PHOTOS
[2019-10-02 13:20] VITALS: BP 152/80
--- NOTE | 2019-10-02 13:40 | NUR ---
Discharge instructions reviewed with patient/family. Patient receptive and verbalizes understanding. Follow-up care arranged. Written instructions given to patient/family. GUERO GOMES
--- NOTE | 2019-10-02 14:12 | NUR ---
REPORT CALLED TO [facility] SPOKE WITH EBONY
== END 2019-10-02 13:40 | disposition home or self-care (01) | DRG 291 ==
LOC: ED 17:52 → 4E 22:10 → EDHOLD 22:10 → 4E 22:48
PROVIDERS: Emergency Medicine; Family Medicine; Hospitalist; Internal Medicine; Student in an Organized Health Care Education/Training Program; ADMIT Emergency Medicine
DX: I13.0 Hypertensive heart and chronic kidney disease with heart failure and stage 1 through stage 4 chronic kidney disease, or unspecified chronic kidney disease (principal); I50.43 Acute on chronic combined systolic (congestive) and diastolic (congestive) heart failure; N17.0 Acute kidney failure with tubular necrosis; E43 Unspecified severe protein-calorie malnutrition; N18.4 Chronic kidney disease, stage 4 (severe); I45.2 Bifascicular block; E44.0 Moderate protein-calorie malnutrition; D53.9 Nutritional anemia, unspecified; D72.810 Lymphocytopenia; R73.9 Hyperglycemia, unspecified; E78.5 Hyperlipidemia, unspecified; E87.6 Hypokalemia; D63.8 Anemia in other chronic diseases classified elsewhere; Z66 Do not resuscitate; Z51.5 Encounter for palliative care; I71.4 Abdominal aortic aneurysm, without rupture; J30.2 Other seasonal allergic rhinitis; M10.9 Gout, unspecified; E55.9 Vitamin D deficiency, unspecified; N40.0 Benign prostatic hyperplasia without lower urinary tract symptoms; T45.515A Adverse effect of anticoagulants, initial encounter; Y92.89 Other specified places as the place of occurrence of the external cause; Z83.3 Family history of diabetes mellitus; Z95.2 Presence of prosthetic heart valve; Z82.3 Family history of stroke; Z68.26 Body mass index [BMI] 26.0-26.9, adult

== ENCOUNTER 2020-04-30 21:18 | Observation (INO) | payer OTHER ==
[~2020-04-30] VITALS: Ht 167.6 cm; Wt 66.0 kg
[~2020-04-30 21:18] MED LIST changes: +APRESOLINE25 MG PO; +Coumadin2.5 MG PO; +IMDUR SA30 MG PO; -LOPURIN300 MG PO; +MAPAP325 MG PO; +METOPROLOL SUC100 M1 PO; +ZYLOPRIM100 MG PO
[2020-04-30 21:20] VITALS: BP 164/89
[2020-04-30 21:46] LABS: BASO % 0.3 % (0.0-1.0); EOS # 0.2 10*3/uL (0.0-0.4); EOS % 1.8 % (1.0-4.0); HEMATOCRIT 35.2 % (42.0-52.0); LYMPH # 1.3 10*3/uL (1.3-4.4); LYMPH % 13.8 % (27.0-41.0); MEAN CELL VOLUME 90.7 fl (80.0-94.0); MEAN CORPUSCULAR HGB 30.7 pg (27.0-31.0); MEAN CORPUSCULAR HGB CONC 33.8 g/dl (33.0-37.0); MEAN PLATELET VOLUME 10.4 fl (9.6-12.3); MONO # 1.6 10*3/uL (0.1-1.0); MONO % 17.1 % (3.0-9.0); NEUT % 66.4 % (47.0-73.0); PLATELET COUNT AUTOMATED 200 10*3/uL (130-400); RED BLOOD COUNT 3.88 10*6/uL (4.50-5.90); RED CELL DISTRI WIDTH 14.6 % (0-14.5); WHITE BLOOD COUNT 9.1 10*3/uL (4.8-10.8)
[2020-04-30 22:01] LABS: ALBUMIN 3.5 gm/dl (3.1-4.5); CREATININE 4.82 mg/dL (0.70-1.30); POTASSIUM 2.7 mmol/L (3.5-5.1); TOTAL PROTEIN 7.5 gm/dL (6.4-8.2)
[2020-04-30 23:23] LABS: INTERNATIONAL NORM RATIO 2.7 (2.0-3.5)
[2020-05-01] VITALS (9 sets, daily range): BP systolic 137–190; BP diastolic 83–98
--- NOTE | 2020-05-01 01:30 | NUR ---
PT HAS HEALING "SORE" BY IV SITE ON L AC WITH BANDAIDE OVER IT PT REFUSED PHOTO AT THIS TIME
[2020-05-01] MEDS ORDERED: ALDACTONE25 M1 PO (02:08)
[2020-05-01] MEDS ORDERED: BUMETANIDE1 MG PO (02:10)
--- NOTE | 2020-05-01 03:04 | NUR ---
PT UP USING RESTROOM, NO DISTRESS NOTED, RN WILL CONTINUE TO MONITOR
--- NOTE | 2020-05-01 04:43 | NUR ---
PT RESTING IN BED WITH EYES CLOSED, NO DISTRESS NOTED, RESP EASY NON LABORED, RN WILL CONTINUE TO MONITOR
--- NOTE | 2020-05-01 05:54 | NUR ---
INFUSION OF SECOND BAG POTASSIUM COMPLETED.INFUSION OF NS CONTINUES.
--- NOTE | 2020-05-01 06:46 | NUR ---
PT RESTING IN BED WITH EYES CLOSED, RESP EASY NON LABORED, NO DISTRESS NOTED, RN WILL CONTINUE TO MONITOR
[2020-05-01 06:52] LABS: HEMATOCRIT 33.8 % (42.0-52.0); MEAN CELL VOLUME 90.4 fl (80.0-94.0); MEAN CORPUSCULAR HGB 30.5 pg (27.0-31.0); MEAN CORPUSCULAR HGB CONC 33.7 g/dl (33.0-37.0); MEAN PLATELET VOLUME 10.6 fl (9.6-12.3); PLATELET COUNT AUTOMATED 176 10*3/uL (130-400); RED BLOOD COUNT 3.74 10*6/uL (4.50-5.90); RED CELL DISTRI WIDTH 14.6 % (0-14.5); WHITE BLOOD COUNT 9.4 10*3/uL (4.8-10.8)
[2020-05-01 07:22] LABS: INTERNATIONAL NORM RATIO 2.7 (2.0-3.5)
[2020-05-01 07:24] LABS: ALBUMIN 3.3 gm/dl (3.1-4.5); POTASSIUM 2.8 mmol/L (3.5-5.1)
[2020-05-01 07:30] LABS: CREATININE 4.21 mg/dL (0.70-1.30)
[2020-05-01 07:31] LABS: PLATELET SUFFICIENCY NORMAL (NORMAL); TOTAL CELLS COUNTED 100 #CELLS
--- NOTE | 2020-05-01 07:36 | NUR ---
PT IS RESTING IN BED. NO SIGNS OF ACUTE DISTRESS NOTED AT THIS TIME.
--- NOTE | 2020-05-01 08:14 | NUR ---
SPOKE TO RESIDENT TO GET PTS HOME MEDICATIONS ORDERED. RESIDENT MADE AWARE OF PTS BP AT THIS TIME. THEY WILL GET MEDICATIONS ORDERED.
[2020-05-01 12:21] LABS: CREATININE 4.01 mg/dL (0.70-1.30); POTASSIUM 2.8 mmol/L (3.5-5.1)
--- NOTE | 2020-05-01 16:18 | NUR ---
PT RESIDES AT [facility] AND STATES HE IS INDEPENDENT IN CARE. PLAN IS TO RETURN TO [facility] WHEN MEDICALLY STABLE. WILL CONTINUE TO FOLLOW.
[2020-05-01 17:46] LABS: BILIRUBIN Negative (Negative); BLOOD Negative (Negative); CLARITY Clear (Clear); COLOR Yellow (Yellow); GLUCOSE Negative (Negative); KETONE Negative (Negative); LEUKO ESTERASE Negative (Negative); NITRITE Negative (Negative); PH 5.5 (4.5-8.0); UROBILINOGEN 0.2 E.U./dl (0.0-1.0)
[2020-05-01 18:03] LABS: BACTERIA TRACE; RBC 0-2 rbc/hpf (0-2); WBC 0-2 wbc/hpf (0-5)
--- NOTE | 2020-05-01 20:00 | NUR ---
24 HR chart check completed.
--- NOTE | 2020-05-01 20:30 | NUR ---
RESTING IN BED WITH NO ACUTE DISTRESS NOTED. RESPIRATIONS EASY. LUNGS DIMINISHED, CLEAR. PULSE OX 94% RA. CALL LIGHT WITHIN REACH. NO VOICED COMPLAINTS. BED ALARM MAINTAINED FOR SAFETY
[2020-05-01] MEDS ORDERED: DOCUSATE SOD100 MG PO (22:45)
[2020-05-01] MEDS ORDERED: Metolazone5 MG PO (22:48)
[2020-05-01] MEDS ORDERED: MULTIPLE VITAM1 EAC2 PO (22:49)
[2020-05-01] MEDS ORDERED: TRAZODONE50 MG PO (22:52)
[2020-05-02] VITALS: BP 128/72
--- NOTE | 2020-05-02 | NUR ---
PATIENT C/O HEMORRHOID AND REQUESTING PREPARATION H. ALSO WOULD LIKE TRAZADONE ORDERED PER NORM, SEE MED REC.
--- NOTE | 2020-05-02 | NUR ---
SLEEPING. NO DISTRESS NOTED. RESPIRATIONS EASY. VSS. CALL LIGHT WITHIN REACH. BED ALARM MAINTAINED
--- NOTE | 2020-05-02 02:40 | NUR ---
SLEEPING. IV FLUIDS INFUSING.
--- NOTE | 2020-05-02 06:00 | NUR ---
RESTED THROUGHOUT NIGHT WITH NO DISTRESS NOTED. RESPIRATIONS EASY. IV FLUIDS MAINTAINED. CALL LIGHT WITHIN REACH. NO VOICED COMPLAINTS THIS SHIFT. BED ALARM MAINTAINED FOR SAFETY
[2020-05-02 08:00] VITALS: BP 147/54
[2020-05-02 08:05] LABS: BASO % 0.3 % (0.0-1.0); EOS # 0.2 10*3/uL (0.0-0.4); HEMATOCRIT 36.4 % (42.0-52.0); LYMPH # 1.4 10*3/uL (1.3-4.4); LYMPH % 13.4 % (27.0-41.0); MEAN CELL VOLUME 92.6 fl (80.0-94.0); MEAN CORPUSCULAR HGB 30.8 pg (27.0-31.0); MEAN CORPUSCULAR HGB CONC 33.2 g/dl (33.0-37.0); MEAN PLATELET VOLUME 9.9 fl (9.6-12.3); MONO # 1.4 10*3/uL (0.1-1.0); MONO % 13.8 % (3.0-9.0); NEUT % 69.8 % (47.0-73.0); PLATELET COUNT AUTOMATED 177 10*3/uL (130-400); RED BLOOD COUNT 3.93 10*6/uL (4.50-5.90); RED CELL DISTRI WIDTH 14.7 % (0-14.5); WHITE BLOOD COUNT 10.1 10*3/uL (4.8-10.8)
--- NOTE | 2020-05-02 08:15 | NUR ---
PRESS SETUP OPERATOR FAXED UPDATES TO [facility]. PATIENT WILL NEED A COVID TEST.
[2020-05-02 08:19] LABS: CREATININE 3.59 mg/dL (0.70-1.30); POTASSIUM 3.6 mmol/L (3.5-5.1)
--- NOTE | 2020-05-02 11:08 | NUR ---
PT IS RESIDENT AT [facility] AND WILL RETURN WHEN MEDICALLY STABLE. COVID IS PENDING. WILL CONTINUE TO FOLLOW.
[2020-05-02 12:00] VITALS: BP 153/86
[2020-05-02] MEDS ORDERED: PROCTOFOAM-HC 110 G1 R (12:43)
--- NOTE | 2020-05-02 16:41 | NUR ---
Discharge instructions reviewed with patient/family. Patient receptive and verbalizes understanding. Follow-up care arranged. Written instructions given to patient/family. DIANA AMAYA
== END 2020-05-02 16:41 | disposition other institution (70) ==
LOC: ED 21:18 → EDHOLD 22:36 → 4E 05-01 13:37
PROVIDERS: Emergency Medicine; Hospitalist; Internal Medicine; ADMIT Family Medicine; ATTEND Family Medicine
DX: N17.9 Acute kidney failure, unspecified (principal); E87.6 Hypokalemia; E87.1 Hypo-osmolality and hyponatremia; E87.8 Other disorders of electrolyte and fluid balance, not elsewhere classified; I13.0 Hypertensive heart and chronic kidney disease with heart failure and stage 1 through stage 4 chronic kidney disease, or unspecified chronic kidney disease; I50.9 Heart failure, unspecified; N18.9 Chronic kidney disease, unspecified; J44.9 Chronic obstructive pulmonary disease, unspecified; E78.5 Hyperlipidemia, unspecified; D72.810 Lymphocytopenia; N40.0 Benign prostatic hyperplasia without lower urinary tract symptoms; M10.9 Gout, unspecified